=== PATIENT | male | born 2000 | race Caucasian/White ===

== ENCOUNTER 2019-04-09 11:50 | Inpatient (IN) | payer SELFPAY ==
[2019-04-09] VITALS (367 sets, daily range): BP systolic 101–109; BP diastolic 69–80; PULSE 81–825; TEMP 98.6–98.9; O2SAT 95–100
[~2019-04-09] VITALS: Ht 175.3 cm; Wt 62.9 kg
[2019-04-09 12:38] LABS: HEMOGLOBIN 12.8 g/dl (12.5-16.1); MEAN CELL VOLUME 95 fl (80.0-95.0); MEAN CORPUSCULAR HEMOGLOBIN 31 pg (26.0-32.0); MEAN CORPUSCULAR HGB CONC 33 g/dl (33.0-37.0); MEAN PLATELET VOLUME 9.8 fl (7.4-10.4); PLATELET COUNT 334 K/mm3 (130-400); REDCELL DISTRIBUTION WIDTH-CV 12.7 % (11.5-14.5)
[2019-04-09 12:40] LABS: PROTHROMBIN TIME 11.9 SECONDS (9.7-12.8)
[2019-04-09 12:43] LABS: ALBUMIN 4.2 gm/dL (3.5-5.0); BILIRUBIN,TOTAL 0.8 mg/dL (0.0-1.0); CREATININE, serum 0.98 (0.66-1.25); POTASSIUM 3.6 mmol/L (3.4-5.0)
[2019-04-09 12:56] LABS: BAND 15 % (0-10); LYMPHOCYTE 9 % (20.0-51.0); NEUTROPHILS 71 % (42.0-75.2); PLATELET ESTIMATE NORMAL (NORMAL); TROPONIN-I 5.79 ng/mL (0.000-0.035)
[2019-04-09 19:00] LABS: TRICYCLIC ANTIDEPRESS URINE NEGATIVE
[2019-04-10] VITALS (721 sets, daily range): BP systolic 105–127; BP diastolic 69–87; PULSE 67–83; TEMP 98–98.5; O2SAT 93–100
[2019-04-10 06:32] LABS: CALCIUM 9.4 mg/dL (8.4-10.2); CREATININE, serum 0.89 (0.66-1.25); POTASSIUM 3.9 mmol/L (3.4-5.0)
[2019-04-10 06:37] LABS: BASO % 0.3 % (0.0-2.0); EOS # 0.1 (0.0-0.7); EOS % 1.5 % (0-4.0); GRAN # 3.9 (1.4-6.5); GRAN % 53.6 % (42.2-75.2); HEMATOCRIT 40.3 % (36.0-47.0); LYMPH # 2.4 (1.2-3.4); LYMPH % 32.6 % (20.0-51.0); MEAN CELL VOLUME 96 fl (80.0-95.0); MEAN CORPUSCULAR HEMOGLOBIN 31 pg (26.0-32.0); MEAN CORPUSCULAR HGB CONC 32 g/dl (33.0-37.0); MEAN PLATELET VOLUME 10.3 fl (7.4-10.4); MONO # 0.9 (0.1-0.6); MONO % 11.7 % (1.7-9.3); PLATELET COUNT 319 K/mm3 (130-400); RED BLOOD COUNT 4.22 M/mm3 (4.20-5.60); REDCELL DISTRIBUTION WIDTH-CV 12.8 % (11.5-14.5)
[2019-04-10 06:52] LABS: TROPONIN-I 4.15 ng/mL (0.000-0.035)
[2019-04-10] MEDS ORDERED: COLCRYS0.6 MG PO (10:56)
[2019-04-10] MEDS ORDERED: IBU800 M1 PO (10:57)
== END 2019-04-10 12:18 | disposition home or self-care (01) | DRG 282 ==
LOC: COL.ER 11:50 → ICU 14:01 → IMCU 14:01
PROVIDERS: Emergency Medicine; Physician Assistant; ADMIT Student in an Organized Health Care Education/Training Program
DX: I31.9 Disease of pericardium, unspecified (principal); I21.A1 Myocardial infarction type 2; F12.90 Cannabis use, unspecified, uncomplicated
CPT/HCPCS: 99222-AI; 99239; J1885; J2270; J7030

== ENCOUNTER 2020-03-17 14:53 | Emergency (ER) | payer SELFPAY ==
[~2020-03-17] VITALS: Ht 177.8 cm; Wt 61.4 kg
[~2020-03-17 14:53] MED LIST: COLCRYS0.6 MG PO; IBU800 M1 PO
[2020-03-17 14:56] VITALS: TEMP 97.7
[2020-03-17 15:15] VITALS: BP 112/69; PULSE 54
== END 2020-03-17 15:15 | disposition home or self-care (01) ==
LOC: COL.ER 14:53
DX: R11.2 Nausea with vomiting, unspecified (principal); R19.7 Diarrhea, unspecified